=== PATIENT | female | born 1965 | race Hispanic/Latino ===

== ENCOUNTER 2019-03-20 13:21 | Outpatient (CLI) | payer MEDICARE, MEDICAID ==
--- NOTE | 2019-03-20 14:18 | BD ---
Exam: DEXA Bone Density History: 53-year-old post-menopausal female for screening. Lumbar Spine: BMD (g/cm2) L1 1.055 T-Score: 0.6 L2 0.981 T-Score: -0.4 L3 0.878 T-Score: -1.9 L4 0.904 T-Score: -1.4 L1-L4 0.949 T-Score: -0.9 Femoral Neck: 0.795 T-Score: -0.5 Total Femur: 1.017 T-Score: 0.6 Impression: Normal bone mineral density. POS: TPC
--- NOTE | 2019-03-20 14:25 | MMO ---
Bilateral MAMMO Bilat Screen [facility]. CLINICAL HISTORY: Patient is 53 years old and is seen for screening. The patient has the following family history of breast cancer: maternal grandmother, great. The patient has a history of thyroid cancer in 2008. VIEWS: The views performed were: bilateral craniocaudal with tomosynthesis and bilateral mediolateral oblique with tomosynthesis. FILMS COMPARED: The present examination has been compared to a prior imaging study performed at [facility] on 01/24/2015. MAMMOGRAM FINDINGS: There are scattered fibroglandular densities. There are no suspicious masses, suspicious calcifications, or new areas of architectural distortion. IMPRESSION: THERE IS NO MAMMOGRAPHIC EVIDENCE OF MALIGNANCY. A ROUTINE FOLLOW-UP MAMMOGRAM IN 1 YEAR IS RECOMMENDED. THE RESULTS OF THIS EXAM WERE SENT TO THE PATIENT. ACR BI-RADS Category 1 - Negative MAMMOGRAPHY NOTE: 1. A negative mammogram report should not delay a biopsy if a dominant of clinically suspicious mass is present. 2. Approximately 10% to 15% of breast cancers are not detected by mammography. 3. Adenosis and dense breasts may obscure an underlying neoplasm. Reported by: MARIANA CABRERA MD Electonically Signed: [id number]
== END 2019-03-20 13:22 | disposition home or self-care (01) ==
LOC: BICMAMMO 13:21
PROVIDERS: ATTEND Family Medicine
DX: Z12.31 Encounter for screening mammogram for malignant neoplasm of breast (principal); Z13.820 Encounter for screening for osteoporosis; Z80.3 Family history of malignant neoplasm of breast; Z85.850 Personal history of malignant neoplasm of thyroid
CPT/HCPCS: 77063; 77067; 77080